=== PATIENT | male | born 1955 | race Caucasian/White ===

== ENCOUNTER 2016-11-19 20:01 | Emergency (ER) | payer OTHER ==
[~2016-11-19] VITALS: Ht 170.2 cm; Wt 81.0 kg
[2016-11-19 20:03] VITALS: Ht 170.2 cm; Wt 81.0 kg
[2016-11-19 20:12] VITALS: TEMP 98.2
[2016-11-19] MEDS ORDERED: LISI40TA9 PO (20:47)
[2016-11-19] MEDS ORDERED: OMEP40CA6 PO (20:48)
[2016-11-19] MEDS ORDERED: ASPI-664 PO (20:48)
[2016-11-19] MEDS ORDERED: HYDROCODONE/APAP (5/325) TAB PO ONE (21:00)
[2016-11-19] MEDS ORDERED: IBUPROFEN 600 MG TAB PO ONE (21:00)
--- NOTE | 2016-11-19 21:59 | RADRPT ---
PROCEDURE: XR Knee. CLINICAL INDICATION: 61 years of age, male. Right knee pain. Negative history for trauma. TECHNIQUE: Three views of the right knee. COMPARISON: None available. FINDINGS: Negative for evidence of acute fracture. Normal alignment. There is mild narrowing of the medial knee joint compartment with peaking of the tibial spines in ke eping with mild medial compartment osteoarthritis. Remaining joint spaces are preserved. There is a moderate knee joint effusion. Negative for significant soft tissue swelling. IMPRESSION: Moderate knee joint effusion with mild medial compartment osteoarthritis. If there is clinical ector rn for septic arthritis, recommend diagnostic joint aspiration. MRI could better evaluate for media intern al derangement of the knee menisci and ligaments. RPTAT: HCTS Physician Madisyn Date Time Electronically viewed and signed by Echo Lovelace Physician on 11/19/2016 21:58 CS/
--- NOTE | 2016-11-19 22:02 | RADRPT ---
PROCEDURE: ULTRASOUND OF THE RIGHT LOWER EXTREMITY VENOUS SYSTEM WITH DOPPLER CLINICAL INDICATION: 61 years of age, male. Pain and swelling. COMPARISON: None available. TECHNIQUE: Real-time longitudinal and transverse sonographic danielle scale imaging with and without com pression, as well as color and duplex Doppler imaging before and after augmentation, was obtained of the deep system of the right lower extremity, including the common femoral, femoral, popliteal, pos terior tibial, and peroneal veins. FINDINGS: Right common femoral vein: No evidence of thrombus. Right femoral vein: No evidence of thrombus. Right popliteal vein: No evidence of thrombus. Right calf veins: Patent where visualized. Additional comment: None. IMPRESSION: Negative for ultrasound evidence of deep venous thrombosis in the right lower extremity. RPTAT: HCTS Physician Madisyn Date Time Electronically viewed and signed by Echo Lovelace Physician on 11/19/2016 23:53 /
--- NOTE | 2016-11-19 22:22 | ERD ---
ER Documentation Chief Complaint Date/Time DATE: 11/19/16 TIME: 22:22 Chief Complaint right knee pain; chronic, no new injury. ambulates w/ crutches HPI 61-year-old male presenting with right knee pain exacerbated by walking. The pain has been going on for the past 3 days. He describes it as aching and throbbing. No recent injuries. No associated numbness or tingling. Pain is worse with walking and bending his leg at the knee. He has not tried to take anything for the pain. He does have a history of gout, but he does not think that this is gout. ROS All systems reviewed and are negative except as per history of present illness. Medications Home Meds Active Scripts Hydrocodone/Acetaminophen ([place] 5-325 Tablet) 1 Each Tablet, 1 TAB PO Q6H Y for PAIN, #7 TAB Prov:DENIS CASTANEDA MD 11/19/16 Ibuprofen* (Motrin*) 600 Mg Tab, 600 MG PO Q6H Y for PAIN AND OR ELEVATED TEMP, #30 TAB Prov:DENIS CASTANEDA MD 11/19/16 Reported Medications Aspirin* (Aspirin* EC) 81 Mg Tablet., 81 MG PO DAILY, TAB 11/19/16 Omeprazole* (Omeprazole*) 40 Mg Capsule.dr, 40 MG PO DAILY, #30 CAP 11/19/16 Lisinopril* (Lisinopril*) 40 Mg Tablet, 40 MG PO DAILY, #30 TAB 11/19/16 Allergies Allergies: Coded Allergies: No Known Allergy (Unverified , 11/19/16) PMhx/Soc History of Surgery: Yes (APPENDIX) Anesthesia Reaction: No Hx Neurological Disorder: No Hx Respiratory Disorders: No Hx Cardiac Disorders: Yes (HTN) Hx Psychiatric Problems: No Hx Miscellaneous Medical Probl: Yes (HIGH CHOLESTEROL, GOUT) Hx Alcohol Use: No Hx Substance Use: No Hx Tobacco Use: No Smoking Status: Never smoker FmHx Family History: No diabetes Physical Exam Vitals Vital Signs Date Time Temp Pulse Resp B/P Pulse Ox O2 Delivery O2 Flow Rate FiO2 11/19/16 20:12 98.2 88 20 162/97 97 Room Air 11/19/16 20:03 98.2 81 20 162/97 97 Physical Exam Const: Well appearing, no apparent distress Head: Atraumatic Eyes: Normal Conjunctiva ENT: Normal External Ears, Nose and Mouth. Neck: Full range of motion..~ No meningismus. Resp: Clear to auscultation bilaterally Cardio: Regular rate and rhythm, no murmurs Abd: Soft, non tender, non distended. Normal bowel sounds Skin: No petechiae or rashes Back: No midline or flank tenderness Ext: Right knee with tenderness to palpation diffusely, mostly on the lateral aspect. There is also tenderness to palpation in the posterior aspect of the knee. No significant effusion noted. No erythema or warmth over the joint. Limited range of motion at the knee secondary to pain. Full range of motion at the right hip, ankle, and toes. 2+ DP and PT pulses. No lower extremity edema. Neur: Awake and alert, motor strength grossly intact, sensations intact Psych: Normal Mood and Affect Results 24 hrs Current Medications Medications (Trade) Dose Ordered Sig/Theresa Route PRN Reason Start Time Stop Time Status Last Admin Dose Admin Ibuprofen (Motrin) 600 mg ONCE ONCE PO 11/19/16 21:00 11/19/16 21:01 DC 11/19/16 21:16 Acetaminophen/ Hydrocodone Bitart ([place] (5/325)) 1 tab ONCE ONCE PO 11/19/16 21:00 11/19/16 21:01 DC 11/19/16 21:16 Procedures/MDM Ultrasound venous right lower extremity negative for DVT X-ray right knee: Moderate knee joint effusion with mild medial compartment osteoarthritis. If there is clinical concern for septic arthritis, recommend diagnostic joint aspiration. MRI could better evaluate for internal derangement of the knee menisci and ligaments. Patient is presenting with right knee acute pain and swelling. Vitals are stable and he is afebrile. There is no evidence of septic joint. X-ray does not show any bony injury or dislocation. There is no evidence of ischemic limb. Ultrasound was negative for DVT. It does seem he has an effusion and osteoarthritis of the right knee, which would explain his pain. I discussed home care with the patient. He was advised to elevate his leg as much as possible and try to stay off of it. He does state that he walks a lot during the day. He does have a pair of crutches that he has been using. I will give him a prescription for ibuprofen and [place]. Follow-up with PCP was recommended. Return precautions were discussed. Patient's blood pressure was elevated (>120/80) but appears stable without evidence of hypertension emergency or urgency. The patient was counseled about the risks of hypertension and urged to pursue outpatient monitoring and therapy within a week with their primary care physician. Departure Diagnosis: Primary Impression: Osteoarthritis Osteoarthritis location: knee Osteoarthritis type: unspecified Laterality: right Qualified Code: M17.11 - Osteoarthritis of right knee, unspecified osteoarthritis type Additional Impression: Right knee pain Chronicity: acute Qualified Code: M25.561 - Acute pain of right knee Condition: Stable DENIS CASTANEDA MD Nov 19, 2016 22:22
[2016-11-19] MEDS ORDERED: IBUP-1542 PO (22:30)
[2016-11-19] MEDS ORDERED: HYDR-906 PO (22:30)
[2016-11-19 23:41] VITALS: BP 136/78; PULSE 76; RESP 16
== END 2016-11-19 23:43 | disposition home or self-care (01) ==
LOC: E/R 20:01
DX: M17.11 Unilateral primary osteoarthritis, right knee (principal); I10 Essential (primary) hypertension; Z79.82 Long term (current) use of aspirin
CPT/HCPCS: 73562; 93971; Z7610